=== PATIENT | female | born 1985 | race Caucasian/White ===

== ENCOUNTER 2017-01-27 19:14 | Emergency (ER) | payer OTHER ==
[~2017-01-27] VITALS: Ht 157.5 cm; Wt 73.0 kg
[~2017-01-27 19:14] MED LIST: PREN1TAB12 PO
[2017-01-27 19:25] VITALS: Ht 157.5 cm; Wt 73.0 kg
[2017-01-27 20:26] LABS: ADD SCAN DIFF NO
[2017-01-27 20:30] LABS: BASOPHILS % 0.4 % (0.0-2.0); EOSINOPHILS # 0.3 10^3/ul (0.0-0.5); HEMATOCRIT 40.1 % (37.0-47.0); HEMOGLOBIN 13.3 g/dl (12.0-16.0); LYMPHOCYTES # 2.1 10^3/ul (0.8-2.9); LYMPHOCYTES % 23.4 % (15.0-51.0); MEAN CORPUSCULAR HEMOGLOBIN 27.3 pg (29.0-33.0); MEAN CORPUSCULAR HGB CONC 33.2 g/dl (32.0-37.0); MEAN CORPUSCULAR VOLUME 82.2 fl (82.0-101.0); MONOCYTE # 0.5 10^3/ul (0.3-0.9); MONOCYTES % 5.6 % (0.0-11.0); NEUTROPHIL # 6.2 10^3/ul (1.6-7.5); NEUTROPHILS % 67.3 % (39.0-77.0); PLATELET COUNT 241 10^3/UL (140-415); RED BLOOD COUNT 4.88 10^6/ul (4.20-5.40); RED CELL DISTRIBUTION WIDTH 12.4 % (11.5-14.5); WHITE BLOOD COUNT 9.1 10^3/ul (4.8-10.8)
[2017-01-27 20:31] LABS: ADD UMIC YES; URINE BILIRUBIN (Dip) NEGATIVE (NEGATIVE); URINE BLOOD (Dip) 3+ (NEGATIVE); URINE COLOR LT. YELLOW (YELLOW); URINE GLUCOSE (Dip) NEGATIVE (NEGATIVE); URINE KETONES (Dip) NEGATIVE (NEGATIVE); URINE LEUKOCYTE ESTERASE (Dip) NEGATIVE (NEGATIVE); URINE NITRITE (Dip) NEGATIVE (NEGATIVE); URINE TOTAL PROTEIN (Dip) NEGATIVE (NEGATIVE); URINE UROBILINOGEN (Dip) 0.2 E.U./dL (0.1-1.0)
[2017-01-27 20:43] LABS: BACTERIA,URINE OCCASIONAL
--- NOTE | 2017-01-27 22:02 | RADRPT ---
PROCEDURE: US OB. CLINICAL INDICATION: Early , vaginal bleeding with clots. TECHNIQUE: Multiple sonographic images of the pelvis were obtained. Transabdominal and transvagin al views of the pelvis are available for review. The images were reviewed on a PACS workstation. COMPARISON: No prior studies are available for comparison. FINDINGS: The uterus measures 10.5 x 4.4 x 5.9 cm. An intrauterine gestational sac is identified in the lower uterine segment. The mean gestational sac diameter measures 1.52 cm, corresponding to a 6-eozc-9-day . The crown-rump length equals 0.72 cm which corresponds to a 6-qgow-4-day gestational ag e by ultrasound criteria. cardiac activity could not be identified. No subchorionic hemorrha ge is identified. The right ovary measures 2.7 x 1.7 x 2.8 cm. The left ovary measures 2.3 x 1.7 x 2.3 cm. Blood flow is demonstrated to both ovaries. The adnexa are unremarkable. There is no free pelvic fluid. IMPRESSION: 1. 1-qovu-8-day intrauterine , with the gestational sac located in the lower uterine segme nt and no heart tones identified. This is suggestive of an in progress and continued follow-up is recommended. RPTAT: HTAR .Dhruv Gamez MD, Date Time Electronically viewed and signed by .Dhruv Gamez MD, on 01/27/2017 22:02 .R/
[2017-01-27] MEDS ORDERED: HYDR-906 PO (22:11)
[2017-01-27] MEDS ORDERED: HYDROCODONE/APAP (5/325) TAB PO ONE (22:30)
--- NOTE | 2017-01-27 22:30 | ERD ---
ER Documentation Chief Complaint Date/Time DATE: 01/27/17 TIME: 22:27 Chief Complaint vaginal bleeding since yesterday, states 8 weeks HPI This is a 31-year-old female presents to the ER with vaginal spotting that started yesterday. Today spotting became bleeding and has been heavier. Patient denies any vaginal discharge. She denies any urinary frequency or dysuria. Patient does admit to some pelvic cramping. She denies any fever or chills. A0. ROS 12 point review of systems was done, all negative except per HPI. Medications Home Meds Active Scripts Hydrocodone/Acetaminophen ([place] 5-325 Tablet) 1 Each Tablet, 1 TAB PO Q6H Y for PAIN, #10 TAB Prov:DIONE WAKEFIELD 01/27/17 Reported Medications Vit/Fe Fumarate/Fa ( 1-1 Tablet) 1 Tab Tablet, 1 TAB PO DAILY, #1 08/13/12 Allergies Allergies: Coded Allergies: No Known Allergies (Verified Allergy, Unknown, 01/27/17) PMhx/Soc Medical and Surgical Hx: pt denies Medical Hx History of Surgery: Yes (C SECTION X'S 3) Anesthesia Reaction: No Hx Neurological Disorder: No Hx Respiratory Disorders: No Hx Cardiac Disorders: No Hx Psychiatric Problems: No Hx Miscellaneous Medical Probl: No Hx Alcohol Use: No Hx Substance Use: No Smoking Status: Never smoker Physical Exam Vitals Vital Signs Date Time Temp Pulse Resp B/P Pulse Ox O2 Delivery O2 Flow Rate FiO2 01/27/17 19:25 98.6 84 20 139/88 99 Physical Exam GENERAL: The patient is well developed and appropriate for usual state of health , in no apparent distress. HEENT: Atraumatic. CHEST: Clear to auscultation bilaterally. There are no rales, wheezes or rhonchi. HEART: Regular rate and rhythm. No murmurs, clicks, rubs or gallops. ABDOMEN: Soft, nontender and nondistended. Good bowel sounds. No rebound or guarding. No gross peritonitis. No gross organomegaly or masses. No Juares sign or McBurney point tenderness. BACK: No midline or flank tenderness. NEURO: Alert and oriented. SKIN: The skin is warm and dry. Result Diagram: 01/27/17 2016 Results 24 hrs Laboratory Tests Test 01/27/17 20:16 White Blood Count 9.110^3/ul Red Blood Count 4.8810^6/ul Hemoglobin 13.3g/dl Hematocrit 40.1% Mean Corpuscular Volume 82.2fl Mean Corpuscular Hemoglobin 27.3pg Mean Corpuscular Hemoglobin Concent 33.2g/dl Red Cell Distribution Width 12.4% Platelet Count 28782^3/UL Mean Platelet Volume 12.0fl Neutrophils % 67.3% Lymphocytes % 23.4% Monocytes % 5.6% Eosinophils % 3.0% Basophils % 0.4% Nucleated Red Blood Cells % 0.0/100WBC Neutrophils # 6.210^3/ul Lymphocytes # 2.110^3/ul Monocytes # 0.510^3/ul Eosinophils # 0.310^3/ul Basophils # 0.010^3/ul Nucleated Red Blood Cells # 0.010^3/ul Urine Color LT. YELLOW Urine Clarity CLEAR Urine pH 7.0 Urine Specific [place] <=1.005 Urine Ketones NEGATIVE Urine Nitrite NEGATIVE Urine Bilirubin NEGATIVE Urine Urobilinogen 0.2 E.U./dL Urine Leukocyte Esterase NEGATIVE Urine Microscopic RBC 2-5/HPF Urine Microscopic WBC NONE SEEN/HPF Urine Bacteria OCCASIONAL Urine Hemoglobin 3+ Urine Glucose NEGATIVE% Urine Total Protein NEGATIVE Beta HCG, Quantitative 6164.9mIU/ml Current Medications Medications (Trade) Dose Ordered Sig/Kelly Route PRN Reason Start Time Stop Time Status Last Admin Dose Admin Acetaminophen/ Hydrocodone Bitart ([place] (5/325)) 1 tab ONCE ONCE PO 01/27/17 22:30 01/27/17 22:31 01/27/17 22:17 Procedures/MDM Differential diagnosis: Threatened , missed , incomplete , ectopic , molar , UTI, pyelonephritis. Unfortunately at this time patient appears to be having a miscarriage. She is however hemodynamically stable. Patient is stable enough to follow-up on an outpatient basis. She will be sent home with [place]. I explained to patient that [place] can have some risk to the baby, since there is no heart tones and patient is likely to miscarry she decided she wanted to take the [place]. Patient is to follow-up with her [employer] as soon as possible or return to ER sooner if symptoms worsen. My medical decision making was shared with the patient she understands and agrees with plan. Departure Diagnosis: Primary Impression: Threatened Condition: Stable Patient Instructions: Possible Miscarriage (Threatened ) Additional Instructions: Call your primary care doctor TOMORROW for an appointment during the next 1-2 days.See the doctor sooner or return here if your condition worsens before your appointment time. DIONE WAKEFIELD Jan 27, 2017 22:29
[2017-01-27 23:00] VITALS: BP 126/80; RESP 20
== END 2017-01-27 23:00 | disposition home or self-care (01) ==
LOC: FTE 19:14
DX: O20.0 Threatened abortion (principal); Z3A.01 Less than 8 weeks gestation of pregnancy
CPT/HCPCS: 76801; 76817; 81001; 84702; 85025; 86900; 86901; Z7610; 36415; 81003